=== PATIENT | male | born 1960 | race Caucasian/White ===

== ENCOUNTER 2019-01-03 00:56 | Observation (INO) | payer MEDICARE, OTHER ==
[2019-01-03] MEDS ORDERED: SODIUM CHLORIDE 0.9% 1,000 ML IV STA (01:23)
--- NOTE | 2019-01-03 01:25 | ED ---
Altered Mental Status HPI - General Chief Complaint: Alcohol Stated Complaint: Alf clearance Time Seen by Provider: 01/03/19 01:00 Source: police, EMS, RN notes reviewed, old records reviewed Mode of arrival: EMS Limitations: altered mental status - History of Present Illness Initial Comments: This is a 50-year-old male the ER for evaluation poor strain secondary intoxication brought in by PD for finding in public. Patient is severely intoxicated. Aggressive not answering questions, argumentative and combative. MD Complaint: altered mental status (All call intoxication), intoxication -: unknown Consistency of Symptoms: constant Context: alcohol abuse Associated Symptoms: denies other symptoms - Related Data Home Medications Medication Instructions Recorded Confirmed No Known Home Medications 01/03/19 01/03/19 Allergies Allergy/AdvReac Type Severity Reaction Status Date / Time No Known Allergies Allergy Verified 01/03/19 01:12 Review of Systems ROS Statement: Those systems with pertinent positive or pertinent negative responses have been documented in the HPI. ROS Other: All systems not noted in ROS Statement are negative. Past Medical History Past Medical History: No Reported History History of Any Multi-Drug Resistant Organisms: None Reported Past Surgical History: No Surgical Hx Reported Past Psychological History: No Psychological Hx Reported Smoking Status: Never smoker Past Alcohol Use History: Occasional Past Drug Use History: None Reported General Exam Limitations: no limitations General appearance: alert, appears intoxicated, anxious, in distress Head exam: Present: atraumatic, normocephalic, normal inspection Eye exam: Present: normal appearance, PERRL, EOMI. Absent: scleral icterus, conjunctival injection, periorbital swelling ENT exam: Present: normal exam, mucous membranes moist Neck exam: Present: normal inspection. Absent: tenderness, meningismus, lymphadenopathy Respiratory exam: Present: normal lung sounds bilaterally. Absent: respiratory distress, wheezes, rales, rhonchi, stridor Cardiovascular Exam: Present: regular rate, normal rhythm, normal heart sounds. Absent: systolic murmur, diastolic murmur, rubs, gallop, clicks GI/Abdominal exam: Present: soft, normal bowel sounds. Absent: distended, tenderness, guarding, rebound, rigid Extremities exam: Present: normal inspection, full ROM, normal capillary refill. Absent: tenderness, pedal edema, joint swelling, calf tenderness Back exam: Present: normal inspection Neurological exam: Present: alert, oriented X3, CN II-XII intact Psychiatric exam: Present: normal affect, normal mood Skin exam: Present: warm, dry, intact, normal color. Absent: rash Course Vital Signs 01/03/19 01:07 Temperature 98.7 F Pulse Rate 66 Respiratory 20 Rate Blood Pressure 94/68 O2 Sat by Pulse 94 L Oximetry - Reevaluation(s) Reevaluation #1: 01/03/19 02:59 Record is reviewed Reevaluation #2: 01/03/19 02:59 Patient acting disorderly needing chemical and physical sedation Medical Decision Making - Medical Decision Making 58 male the ER for evaluation. Patient does say for evaluation of significant alcohol intoxication, does early conduct by PD. Patient found to have severe pancreatitis altered mental status and severe alcohol intoxication will admit for all the above - Lab Data Result diagrams: 01/03/19 01:50 01/03/19 01:50 Lab Results 01/03/19 01/03/19 01/03/19 Range/Units 01:50 01:50 01:50 WBC 5.6 (3.8-10.6) k/uL RBC 4.44 (4.30-5.90) m/uL Hgb 14.4 (13.0-17.5) gm/dL Hct 42.0 (39.0-53.0) % MCV 94.6 (80.0-100.0) fL MCH 32.4 (25.0-35.0) pg MCHC 34.2 (31.0-37.0) g/dL RDW 15.7 H (11.5-15.5) % Plt Count 250 (150-450) k/uL Neutrophils % 57 % Lymphocytes % 31 % Monocytes % 7 % Eosinophils % 2 % Basophils % 1 % Neutrophils # 3.2 (1.3-7.7) k/uL Lymphocytes # 1.7 (1.0-4.8) k/uL Monocytes # 0.4 (0-1.0) k/uL Eosinophils # 0.1 (0-0.7) k/uL Basophils # 0.1 (0-0.2) k/uL Sodium 143 (137-145) mmol/L Potassium 4.0 (3.5-5.1) mmol/L Chloride 111 H (98-107) mmol/L Carbon Dioxide 17 L (22-30) mmol/L Anion Gap 15 mmol/L BUN 11 (9-20) mg/dL Creatinine 1.10 (0.66-1.25) mg/dL Est GFR (CKD-EPI)AfAm 85 (>60 ml/min/1.73 sqM) Est GFR (CKD-EPI)NonAf 74 (>60 ml/min/1.73 sqM) Glucose 102 H (74-99) mg/dL Calcium 9.2 (8.4-10.2) mg/dL Phosphorus 3.8 (2.5-4.5) mg/dL Magnesium 2.2 (1.6-2.3) mg/dL Total Bilirubin 0.5 (0.2-1.3) mg/dL AST 24 (17-59) U/L ALT 17 L (21-72) U/L Alkaline Phosphatase 56 (38-126) U/L Creatine Kinase 126 (55-170) U/L Troponin I <0.012 (0.000-0.034) ng/mL Total Protein 7.3 (6.3-8.2) g/dL Albumin 4.6 (3.5-5.0) g/dL Lipase 1950 H (23-300) U/L Serum Alcohol 291 H* mg/dL Disposition Clinical Impression: Alcoholic intoxication, Acute pancreatitis Disposition: ADMITTED IP TO THIS HOSP Condition: Fair Is patient prescribed a controlled substance at d/c from ED?: No Referrals: None,Stated [REFERRING] - 1-2 days
[2019-01-03] MEDS ORDERED: LORazepam 2 MG/ML INJ IV STA (02:09)
[2019-01-03] MEDS ORDERED: diphenhydrAMINE 50 MG/ML 1 ML VIAL IVP STA (02:09)
[2019-01-03 02:14] LABS: Basophils # (A) 0.1 k/uL (0-0.2); Basophils % (A) 1 %; Eosinophils # (A) 0.1 k/uL (0-0.7); Eosinophils % (A) 2 %; HGB 14.4 gm/dL (13.0-17.5); Lymphocytes # (A) 1.7 k/uL (1.0-4.8); Lymphocytes % (A) 31 %; MCH 32.4 pg (25.0-35.0); MCHC 34.2 g/dL (31.0-37.0); MCV 94.6 fL (80.0-100.0); Mean Platelet Volume 6.7; Monocytes # (A) 0.4 k/uL (0-1.0); Monocytes % (A) 7 %; Neutrophils # (A) 3.2 k/uL (1.3-7.7); Neutrophils % (A) 57 %; Platelet Count 250 k/uL (150-450); RBC 4.44 m/uL (4.30-5.90); RDW 15.7 % (11.5-15.5); WBC 5.6 k/uL (3.8-10.6)
[2019-01-03 02:27] LABS: Albumin 4.6 g/dL (3.5-5.0); Calcium 9.2 mg/dL (8.4-10.2); Magnesium 2.2 mg/dL (1.6-2.3); Phosphorus 3.8 mg/dL (2.5-4.5); Total Bilirubin 0.5 mg/dL (0.2-1.3); Total Protein 7.3 g/dL (6.3-8.2)
--- NOTE | 2019-01-03 02:33 | XR ---
INDICATION: Altered mental status COMPARISON: None FINDINGS: Single frontal view of the chest is provided. There is mild cardiomegaly. The pulmonary vasculature is mildly congested. There is no airspace consolidation, pleural effusion, or pneumothorax. There are no acute osseous findings. IMPRESSION: 1. Mild cardiomegaly and mild pulmonary vascular congestion.
[2019-01-03] MEDS ORDERED: THIAMINE 100 MG/ML 2 ML VIAL IM STA (02:56)
[2019-01-03] MEDS ORDERED: LORazepam 2 MG/ML INJ IV PRN ×3 (02:56)
[2019-01-03] MEDS ORDERED: MORPHINE SULFATE 4 MG/ML SYRINGE IVP STA (02:58)
[2019-01-03] MEDS ORDERED: PANTOPRAZOLE 40 MG/10 ML VIAL IVP STA (02:58)
[2019-01-03] MEDS ORDERED: ONDANSETRON 4 MG/2 ML VIAL IVP STA (02:58)
[2019-01-03] MEDS ORDERED: ONDANSETRON 4 MG/2 ML VIAL IVP PRN (02:58)
[2019-01-03] MEDS ORDERED: MORPHINE SULFATE 4 MG/ML SYRINGE IVP PRN (02:58)
--- NOTE | 2019-01-03 06:30 | ED ---
Medical Decision Making - Lab Data Result diagrams: 01/03/19 01:50 01/03/19 01:50 Lab Results 01/03/19 01/03/19 01/03/19 Range/Units 01:50 01:50 01:50 WBC 5.6 (3.8-10.6) k/uL RBC 4.44 (4.30-5.90) m/uL Hgb 14.4 (13.0-17.5) gm/dL Hct 42.0 (39.0-53.0) % MCV 94.6 (80.0-100.0) fL MCH 32.4 (25.0-35.0) pg MCHC 34.2 (31.0-37.0) g/dL RDW 15.7 H (11.5-15.5) % Plt Count 250 (150-450) k/uL Neutrophils % 57 % Lymphocytes % 31 % Monocytes % 7 % Eosinophils % 2 % Basophils % 1 % Neutrophils # 3.2 (1.3-7.7) k/uL Lymphocytes # 1.7 (1.0-4.8) k/uL Monocytes # 0.4 (0-1.0) k/uL Eosinophils # 0.1 (0-0.7) k/uL Basophils # 0.1 (0-0.2) k/uL Sodium 143 (137-145) mmol/L Potassium 4.0 (3.5-5.1) mmol/L Chloride 111 H (98-107) mmol/L Carbon Dioxide 17 L (22-30) mmol/L Anion Gap 15 mmol/L BUN 11 (9-20) mg/dL Creatinine 1.10 (0.66-1.25) mg/dL Est GFR (CKD-EPI)AfAm 85 (>60 ml/min/1.73 sqM) Est GFR (CKD-EPI)NonAf 74 (>60 ml/min/1.73 sqM) Glucose 102 H (74-99) mg/dL Calcium 9.2 (8.4-10.2) mg/dL Phosphorus 3.8 (2.5-4.5) mg/dL Magnesium 2.2 (1.6-2.3) mg/dL Total Bilirubin 0.5 (0.2-1.3) mg/dL AST 24 (17-59) U/L ALT 17 L (21-72) U/L Alkaline Phosphatase 56 (38-126) U/L Creatine Kinase 126 (55-170) U/L Troponin I <0.012 (0.000-0.034) ng/mL Total Protein 7.3 (6.3-8.2) g/dL Albumin 4.6 (3.5-5.0) g/dL Lipase 1950 H (23-300) U/L Serum Alcohol 291 H* mg/dL Disposition Clinical Impression: Alcoholic intoxication, Acute pancreatitis Disposition: ADMITTED IP TO THIS HOSP Condition: Fair Procedures - Restraint - Face to Face Restraint Occurrence 1 Patient's Immediate Situation: Endangers self safety, Endangers others' safety, Endangers staff safety, Violent behavior Patient's Reaction to the Intervention: Uncooperative, Angry, Belligerent Patient's Medical & Behavioral Condition: Awake, Agitated Need to Continue or Terminate Restraint or Seclusion: Continue Face to Face Eval of Restraint Date: 01/03/19 Face to Face Eval of Restraint Time: 02:15
[2019-01-03] MEDS ORDERED: PANTOPRAZOLE 40 MG/10 ML VIAL IVP SCH (09:00)
[2019-01-03 09:56] LABS: Appearance,Urine Clear (Clear); Bilirubin,Urine Negative (Negative); Blood,Urine Negative (Negative); Color,Urine Light Yellow; Glucose,Urine (UA) Negative (Negative); Ketones,Urine Negative (Negative); Leukocyte Esterase,Urine Negative (Negative); Nitrite,Urine Negative (Negative); PH, Urine 6.5 (5.0-8.0); Protein,Urine Negative (Negative); Specific Gravity,Urine 1.007 (1.001-1.035); Urobilinogen,Urine <2.0 mg/dL (<2.0)
[2019-01-03 10:17] LABS: Amphetamine Screen,Urine Not Detected (NotDetected); Barbiturate Screen,Urine Not Detected (NotDetected); Benzodiazepines Screen,Urine Detected (NotDetected); Cocaine Screen,Urine Not Detected (NotDetected); Methadone Screen, Urine Not Detected (NotDetected); Opiate Screen,Urine Not Detected (NotDetected); Oxycodone Screen, Urine Not Detected (NotDetected); Phencyclidine Screen,Urine Not Detected (NotDetected); Tricyclic Antidepressant,Urine Not Detected (NotDetected); Urn Cannabinoid Scrn Not Detected (NotDetected)
[2019-01-03 15:16] VITALS: BP 130/96; PULSE 86; RESP 18; TEMP 98
--- NOTE | 2019-01-03 15:26 | P.HPIM ---
History of Present Illness 58-year-old male who was brought into ER by police as patient is augmented to combative and was found to be alcohol intoxicated. When I valid the patient patient is alert oriented 3 intoxication appears to be getting better. Patient is not confused when I valid the patient. When patient came in his alcohol level is about 200. Patient denies drinking alcohol and daily basis he says he drinks only once or twice a week and doesn't believe he'll have any alcohol withdrawals. Patient is not combative any more and wanted to go home probably can be discharged. Patient denied any abdominal pain or nausea vomiting, but does have elevated lipase of 1950. Patient was started on diet if he is able to tolerate soft diet will be discharged there is no clinical evidence of pancreatitis. He patient day gets nauseous or starts having abdominal pain but then patient will be made nothing by mouth and will keep him here in the hos pital for 1 more night if necessary. Patient does have non-anion gap and anion gap metabolic acidosis because of which I will obtain lactic acid levels which are not elevated and chloride is elevated to 111 which is controlled with into his acidosis. Patient denied any fever chills nausea vomiting abdominal pain. Urine drug screen is positive for benzodiazepines. Review of Systems REVIEW OF SYSTEMS: CONSTITUTIONAL: No fever, no malaise, no fatigue. HEENT: No recent visual problems or hearing problems. Denied any sore throat. CARDIOVASCULAR: No chest pain, orthopnea, PND, no palpitations, no syncope. PULMONARY: No shortness of breath, no cough, no hemoptysis. GASTROINTESTINAL: No diarrhea, no nausea, no vomiting, no abdominal pain. NEUROLOGICAL: No headaches, no weakness, no numbness. HEMATOLOGICAL: Denies any bleeding or petechiae. GENITOURINARY: Denies any burning micturition, frequency, or urgency. MUSCULOSKELETAL/RHEUMATOLOGICAL: Denies any joint pain, swelling, or any muscle pain. ENDOCRINE: Denies any polyuria or polydipsia. The rest of the 14-point review of systems is negative. Past Medical History Past Medical History: No Reported History History of Any Multi-Drug Resistant Organisms: None Reported Past Surgical History: No Surgical Hx Reported Past Anesthesia/Blood Transfusion Reactions: No Reported Reaction Past Psychological History: No Psychological Hx Reported Smoking Status: Current every day smoker Past Alcohol Use History: Daily Past Drug Use History: None Reported - Past Family History Mother Family Medical History: No Reported History Father Family Medical History: Cancer, Diabetes Mellitus Medications and Allergies Home Medications Medication Instructions Recorded Confirmed Type Thiamine [Vitamin B-1] 100 mg PO BID-W/MEALS #30 tab 01/03/19 Rx Allergies Allergy/AdvReac Type Severity Reaction Status Date / Time No Known Allergies Allergy Verified 01/03/19 07:17 Physical Exam Vitals: Vital Signs Temp Pulse Pulse Resp BP BP Pulse Ox 01/03/19 15:15 98 F 86 18 130/96 100 01/03/19 14:00 98.0 F 62 16 126/74 96 01/03/19 07:00 97.7 F 68 15 135/84 95 01/03/19 01:07 98.7 F 66 20 94/68 94 L Intake and Output 01/03/19 01/03/19 01/03/19 06:59 14:59 22:59 Other: # Voids 2 Weight 83.915 kg PHYSICAL EXAMINATION: GENERAL: The patient is alert and oriented x3, not in any acute distress. Well developed, well nourished. HEENT: Pupils are round and equally reacting to light. EOMI. No scleral icterus. No conjunctival pallor. Normocephalic, atraumatic. No pharyngeal erythema. No thyromegaly. CARDIOVASCULAR: S1 and S2 present. No murmurs, rubs, or gallops. PULMONARY: Chest is clear to auscultation, no wheezing or crackles. ABDOMEN: Soft, nontender, nondistended, normoactive bowel sounds. No palpable organomegaly. MUSCULOSKELETAL: No joint swelling or deformity. EXTREMITIES: No cyanosis, clubbing, or pedal edema. NEUROLOGICAL: Gross neurological examination did not reveal any focal deficits. SKIN: No rashes. Results CBC & Chem 7: 01/03/19 01:50 01/03/19 01:50 Labs: Abnormal Lab Results - Last 24 Hours (Table) 01/03/19 01/03/19 01/03/19 Range/Units 01:50 01:50 09:00 RDW 15.7 H (11.5-15.5) % Chloride 111 H (98-107) mmol/L Carbon Dioxide 17 L (22-30) mmol/L Glucose 102 H (74-99) mg/dL ALT 17 L (21-72) U/L Lipase 1950 H (23-300) U/L U Benzodiazepines Scrn Detected H (NotDetected) Serum Alcohol 291 H* mg/dL Thrombosis Risk Factor Assmnt - Choose All That Apply Any of the Below Risk Factors Present?: Yes Each Factor Represents 1 point: Age 41-60 years, Obesity (BMI >25) Other Risk Factors: No Other congenital or acquired thrombophilia - If yes, enter type in comment: No Thrombosis Risk Factor Assessment Total Risk Factor Score: 2 Thrombosis Risk Factor Assessment Level: Low Risk Assessment and Plan Plan: -Alcohol intoxication and toxic encephalopathy secondary to alcohol intoxication patient is doing better now probably can be discharged as he requested as I believe the possibility of alcohol withdrawal is low since he only drinks once or twice a week as per the patient. And patient is requesting to go home. -Metabolic acidosis, mostly non-anion gap metabolic is low secondary to hyperchloremia -Nonspecific elevation of lipase further management as mentioned above there is no clinical evidence of pancreatitis my suspicion is low for pancreatitis -Nicotine abuse: Counseling was provided
--- NOTE | 2019-01-03 15:27 | P.DS ---
Providers Date of admission: 01/03/19 02:58 Attending physician: Collins Mireles Primary care physician: Jr Robertson Hospital Course: Please refer to my HPI Patient Condition at Discharge: Fair Plan - Discharge Summary Discharge Rx Participant: Yes New Discharge Prescriptions: New Thiamine [Vitamin B-1] 100 mg PO BID-W/MEALS #30 tab Omeprazole [PriLOSEC] 40 mg PO AC-BRKFST #14 capsule.dr Discharge Medication List Omeprazole [PriLOSEC] 40 mg PO AC-BRKFST #14 capsule. 01/03/19 [Rx] Thiamine [Vitamin B-1] 100 mg PO BID-W/MEALS #30 tab 01/03/19 [Rx] Follow up Appointment(s)/Referral(s): None,Stated [REFERRING] - 1-2 days Discharge Disposition: HOME SELF-CARE
[2019-01-03] MEDS ORDERED: THIAMINE 100 MG TAB PO SCH (17:00)
== END 2019-01-03 15:36 | disposition home or self-care (01) ==
LOC: EDBD → EC 00:56 → 4SSUR 02:58 → MERGE 02:58
PROVIDERS: ADMIT Hospitalist; ATTEND Hospitalist
DX: F10.129 Alcohol abuse with intoxication, unspecified (principal); E87.2 Acidosis; R74.8 Abnormal levels of other serum enzymes; E66.9 Obesity, unspecified; Z68.29 Body mass index [BMI] 29.0-29.9, adult; G92 Toxic encephalopathy; F17.200 Nicotine dependence, unspecified, uncomplicated; Z78.1 Physical restraint status; R45.6 Violent behavior; Z83.3 Family history of diabetes mellitus; Z80.9 Family history of malignant neoplasm, unspecified; Y90.8 Blood alcohol level of 240 mg/100 ml or more
CPT/HCPCS: 99285; 36415; 80053; 82140; 82550; 83605; 83690; 83735; 84100; 84484; 85025; 81003; 80306; 71045; G0378; G0480; J2060; J1200; J3411; C9113; 80320